=== PATIENT | female | born 1985 | race African-American/Black ===

== ENCOUNTER 2020-11-29 13:48 | Emergency (ER) | payer OTHER ==
[~2020-11-29] VITALS: Ht 162.6 cm; Wt 98.4 kg
[2020-11-29 14:15] VITALS: BP 155/76
--- NOTE | 2020-11-29 14:30 | NUR ---
35 YEAR OLD FEMALE COMPLAINS OF HEADACHE AND DIZZINESS X 2 DAYS. PT DENIES ANY LOC OR FALLS, STATES SOME NAUSEA. PT AOX4, BREATHING EVEN AND UNLABORED, SKIN WARM AND DRY. BED IN LOWEST POSITION, LOCKED, BED RAIL UPX1. PMH - HTN ALLERGIES - NKA
--- NOTE | 2020-11-29 15:00 | NUR ---
PATIENT AMBULATED TO BED 10
[2020-11-29] MEDS ORDERED: KETOROLAC 30 MG/ML VIAL IVP ONE (15:15)
[2020-11-29] MEDS ORDERED: NACL 0.9% 1,000 ML IV ONE (15:15)
[2020-11-29] MEDS ORDERED: ONDANSETRON 4 MG/2 ML VIAL IVP ONE (16:10)
[2020-11-29] MEDS ORDERED: ONDA8TAB87 PO ×2 (16:47→19:15)
[2020-11-29] MEDS ORDERED: IBUP-2213 PO ×2 (16:47→19:15)
[2020-11-29] MEDS ORDERED: CIPR500T4 PO ×2 (16:47→19:15)
[2020-11-29] MEDS ORDERED: ACET-8386 PO ×2 (16:47→19:15)
[2020-11-29] MEDS ORDERED: KETOROLAC 30 MG/ML VIAL ONE (17:15)
[2020-11-29] MEDS ORDERED: ONDANSETRON 4 MG/2 ML VIAL ONE (17:16)
--- NOTE | 2020-11-29 17:20 | NUR ---
RETURNED 2ND TORADOL TO [facility]
[2020-11-29 17:33] VITALS: BP 155/76
--- NOTE | 2020-11-29 17:34 | NUR ---
Patient discharged with v/s stable. Written and verbal after care instructions given and explained. Patient alert, oriented and verbalized understanding of instructions. Ambulatory with steady gait. All questions addressed prior to discharge. ID band removed. Patient advised to follow up with PMD. Rx of NORCO, MOTRIN, CIPRO, AND ZOFRAN given. Patient educated on indication of medication including possible reaction and side effects. Opportunity to ask questions provided and answered.
--- NOTE | 2020-12-04 11:31 | NUR ---
LATE ENTRY -- NORMAL SALINE COMPLETED AT 1636 11/29/20
== END 2020-11-29 17:34 | disposition home or self-care (01) ==
LOC: MED 13:48 → EDSEX 13:48 → MED 17:34
DX: R51.9 Headache, unspecified (principal); N39.0 Urinary tract infection, site not specified; I10 Essential (primary) hypertension
CPT/HCPCS: 81002; 81025; 96361; 96374; 96375; 99284; J1885; J2405; J7030